=== PATIENT | male | born 1990 | race African-American/Black ===

== ENCOUNTER 2017-09-20 08:16 | Emergency (ER) | payer OTHER ==
[~2017-09-20] VITALS: Ht 188 cm; Wt 70.3 kg
[~2017-09-20 08:16] MED LIST: VISTARIL 25 MG25 M1 PO; ZOFRAN ODT4 MG PO
[2017-09-20] MEDS ORDERED: HYDROCODONE-AP1 EAC6 PO (09:38)
[2017-09-20] MEDS ORDERED: CYCLOBENZAPRINE5 MG PO (09:38)
[2017-09-20] MEDS ORDERED: PREDNISONE 20 M20 MG PO (09:38)
== END 2017-09-20 10:17 | disposition home or self-care (01) ==
LOC: ER 08:16
DX: M54.42 Lumbago with sciatica, left side (principal); M54.41 Lumbago with sciatica, right side; J45.909 Unspecified asthma, uncomplicated